=== PATIENT | female | born 1950 | race Caucasian/White ===

== ENCOUNTER → 2018-07-18 | Outpatient (CLI) | payer BC, MEDICARE ==
--- NOTE | 2018-07-19 09:04 | CT ---
EXAMINATION TYPE: CT abdomen pelvis w con DATE OF EXAM: 07/18/2018 HISTORY: LLQ pain, hernia CT DLP: 1185.5mGycm Automated Exposure Control for Dose Reduction was Utilized. CONTRAST: CT scan of the abdomen and pelvis is performed with IV Contrast, patient injected with 100 mL of Isov ue 300. COMPARISON: None. FINDINGS: LUNG BASES: No significant abnormality is appreciated. LIVER/GB: Left lobe 2.6 cm hepatic cyst is seen with 2 other smaller hypoattenuated hepatic lesions t hat are subcentimeter and too small to accurately characterize but appear very hypoattenuated and are highly favored to represent cysts. No cholelithiasis is seen. PANCREAS: No significant abnormality is seen. SPLEEN: No significant abnormality is seen. ADRENALS: No significant abnormality is seen. KIDNEYS: 4 mm nonobstructing right lower pole renal calculus is seen. Indeterminant left midpole ante rior cortical 1.0 cm lesion is present that does not fit diagnostic criteria for a simple cyst. BOWEL: There is a partial intrathoracic stomach that appears paraesophageal. There is lipomatous hype rtrophy of the ileocecal valve. There is a possibility of small bowel in the left upper quadrant with swirling of the vessels in the mid mesentery beginning on image 39 2 image 49 is series 3. This coul d relate to an internal hernia although no obstruction is seen at this time. No reversal of the super ior mesenteric vein and artery location to suggest malrotation. Left lower quadrant indirect inguinal hernia with component of small bowel extending upward along the left lower quadrant contain within t he hernia sac is seen. No dilated bowel. UTERUS/ADNEXA: There is fullness of the left adnexa on image 70 of series 3 that could be related to fibroid or left adnexal mass. Pelvic ultrasound is recommended for further evaluation. LYMPH NODES: No greater than 1cm abdominal or pelvic lymph nodes are appreciated. OSSEOUS STRUCTURES: Moderate degenerative changes of the thoracolumbar spine. OTHER: There is a very small fat filled umbilical hernia. IMPRESSION: 1. Left indirect inguinal hernia containing loops of small bowel with mesenteric fat, fascial defect, and small bowel extending superiorly along the left lower quadrant. Hernia defect measures approxima tely 4 cm. No dilated loops of bowel to suggest obstruction. 2. Paucity of small bowel in the left upper quadrant and swirling of the mesenteric vessels could rel ate to internal hernia, however no dilated bowel or evidence of obstruction is seen at this time. Cor relate for risk factors and progressive studies to evaluate for obstruction if abdominal pain persist s. This could also be secondary to impression #1. 3. Indeterminate left renal lesion. Renal ultrasound could be performed to assess for increased or tr ansmission of a hemorrhagic or proteinaceous cyst versus solid mass. No hydronephrosis of either kidn ey. 4. Soft tissue fullness of the left adnexa that could relate to a pedunculated uterine leiomyoma or l eft adnexal lesion. Pelvic ultrasound is recommended for further characterization. 5. Partial intrathoracic stomach.
== END | disposition home or self-care (01) ==
LOC: RADCTMAIN 15:44
PROVIDERS: ATTEND Surgery Plastic and Reconstructive Surgery
DX: K40.90 Unilateral inguinal hernia, without obstruction or gangrene, not specified as recurrent (principal)
CPT/HCPCS: 82565; 84520; 74177; 36415; Q9967

== ENCOUNTER 2018-08-08 10:02 | Day surgery (SDC) | payer BC, MEDICARE ==
[2018-08-07 12:53] VITALS: BMI 29.7
--- NOTE | 2018-08-08 05:48 | P.GSHP ---
History of Present Illness H&P Date: 08/08/18 CHIEF COMPLAINT: GERD and colon screen HISTORY OF PRESENT ILLNESS: The patient is a 68-year-old female who presents with gastroesophageal reflux disease and need for colon screen. Upper and lower endoscopy were offered for further evaluation and management. PAST MEDICAL HISTORY: Please see list. PAST SURGICAL HISTORY: Please see list. MEDICATIONS: Please see list. ALLERGIES: Please see list. SOCIAL HISTORY: No illicit drug use FAMILY HISTORY: No reports of Crohn disease or ulcerative colitis. REVIEW OF ORGAN SYSTEMS: CONSTITUTIONAL: No reports of fevers or chills. GI: Denies any blood in stools or constipation. PHYSICAL EXAM: VITAL SIGNS: Stable GENERAL: Well-developed pleasant in no acute distress. HEENT: No scleral icterus. Extraocular movements grossly intact. Moist buccal mucosa. NECK: Supple without lymphadenopathy. CHEST: Unlabored respirations. Equal bilateral excursions. CARDIOVASCULAR: Regular rate and rhythm. Distal 2+ pulses. ABDOMEN: Soft, nondistended. MUSCULOSKELETAL: No clubbing, cyanosis, or edema. ASSESSMENT: 1. Gastroesophageal reflux disease 2. Colon screen. PLAN: 1. Recommend proceeding with an upper and lower endoscopy Past Medical History Past Medical History: Osteoarthritis (OA), Thyroid Disorder Additional Past Medical History / Comment(s): HERNIA History of Any Multi-Drug Resistant Organisms: None Reported Past Surgical History: Tonsillectomy Additional Past Surgical History / Comment(s): ARTHROSCOPIC RIGHT KNEE Past Anesthesia/Blood Transfusion Reactions: No Reported Reaction, Family History of Problems w/ Anesthesia, Postoperative Nausea & Vomiting (PONV) Additional Past Anesthesia/Blood Transfusion Reaction / Comment(s): MOTHER PONV Smoking Status: Former smoker - Past Family History Mother Family Medical History: Cancer Medications and Allergies Home Medications Medication Instructions Recorded Confirmed Type Levothyroxine Sodium [Synthroid] 125 mcg PO DAILY 08/07/18 08/07/18 History Allergies Allergy/AdvReac Type Severity Reaction Status Date / Time No Known Allergies Allergy Verified 08/07/18 12:28
[2018-08-08 10:45] VITALS: TEMP 97.6
[2018-08-08] MEDS ORDERED: LACTATED RINGERS 1,000 ML IV ONE (10:51)
[2018-08-08] MEDS ORDERED: LIDOCAINE 1% 20 ML VIAL (10MG/ML) FOR IV START INTRADERMA ONE (10:53)
[2018-08-08] MEDS ORDERED: PROPOFOL 10 MG/ML 20 ML VIAL IV ONE (11:40)
[2018-08-08] MEDS ORDERED: LIDOCAINE 1% INJ 10MG/ML (20 ML MDV) ONE (11:40)
--- NOTE | 2018-08-08 11:54 | P.PCN ---
Date of Procedure: 08/08/18 Description of Procedure: PREOPERATIVE DIAGNOSIS: Hiatal hernia POSTOPERATIVE DIAGNOSIS: Erosive esophagitis Gastritis. Gastroesophageal reflux disease. Diaphragmatic hiatal hernia OPERATION: Esophagogastroduodenoscopy with biopsies along antrum. SURGEON: Jen Leal MD ANESTHESIA: MAC. INDICATIONS: The patient is a 68-year-old female who presents with a history of hiatal hernia. Benefits and risks of the procedure were described. Informed consent was obtained. DESCRIPTION: The patient was brought into the endoscopy suite and laid in the left lateral decubitus position. An Olympus gastroscope was passed along the posterior oropharynx down to the distal esophagus where the squamocolumnar junction was encountered at 34 cm from the incisors. The stomach was entered and no bile reflux was found. Additional findings are listed below. Biopsies with cold forceps were obtained of the antrum. The first through third portion of the duodenum was examined and unremarkable. Retroflexion of the scope confirmed Hill grade 4 lower esophageal valve. The squamocolumnar junction demonstrated LA grade C erosive esophagitis. The stomach was desufflated. The patient tolerated the procedure well. FINDINGS: Squamocolumnar junction 34 cm from the incisors. Diaphragmatic hiatus at 40 cm. Hiatal hernia, 6 cm, sliding type Hill grade 4 lower esophageal valve. LA grade C erosive esophagitis, acute No active duodenitis. Chronic gastritis RECOMMENDATIONS: Upper endoscopy as needed.
--- NOTE | 2018-08-08 12:09 | P.PCN ---
Date of Procedure: 08/08/18 Description of Procedure: PREOPERATIVE DIAGNOSIS: Colonoscopy screening. POSTOPERATIVE DIAGNOSIS: Colonoscopy screening. Diverticulosis, scattered. OPERATION: Colonoscopy to the ileocecal valve and appendiceal orifice. SURGEON: Jen Leal MD. ANESTHESIA: MAC. INDICATIONS: The patient is a 68-year-old female who presents for her first colonoscopy screening. Benefits and risks were described and informed consent was obtained. DESCRIPTION OF PROCEDURE: The patient had undergone Gatorade, MiraLAX and Dulcolax prep. She had been brought into the operating room and laid in the left lateral decubitus position. After adequate intravenous sedation, the rectum was examined with 2% lidocaine jelly. No external hemorrhoids were encountered. The rectal tone was within normal limits. No lesions were palpated in the rectal vault. An Olympus colonoscope was advanced until the ileocecal valve and appendiceal orifice were clearly viewed. The prep was excellent with clear visualization of the mucosal folds. The scope was removed with visualization of each mucosal fold. Scattered diverticulosis was encountered. No colonic polyps were found. No evidence of focal colitis was found. Retroflexion of the scope demonstrated no internal hemorrhoids. The colon was desufflated. The patient had tolerated the procedure well. Withdrawal time was over 6 minutes. FINDINGS: No internal hemorrhoids No external prolapsed hemorrhoids. No arteriovenous malformations. No adenomatous polyps. No focal colitis. Scattered pandiverticulosis RECOMMENDATIONS: Lower in 10 years per screening guidelines, 2027 Plan - Discharge Summary New Discharge Prescriptions: No Action Levothyroxine Sodium [Synthroid] 125 mcg PO DAILY Discharge Medication List Levothyroxine Sodium [Synthroid] 125 mcg PO DAILY 08/07/18 [History]
[2018-08-08 12:21] VITALS: BP 113/66; PULSE 69; RESP 18
== END 2018-08-08 12:44 | disposition home or self-care (01) ==
LOC: ORWHC2ENDO 10:02
PROVIDERS: ATTEND Surgery Plastic and Reconstructive Surgery
DX: Z12.11 Encounter for screening for malignant neoplasm of colon (principal); K57.30 Diverticulosis of large intestine without perforation or abscess without bleeding; K29.50 Unspecified chronic gastritis without bleeding; K44.9 Diaphragmatic hernia without obstruction or gangrene; K21.0 Gastro-esophageal reflux disease with esophagitis; K22.10 Ulcer of esophagus without bleeding; M19.90 Unspecified osteoarthritis, unspecified site; E07.9 Disorder of thyroid, unspecified; Z79.890 Hormone replacement therapy; Z87.891 Personal history of nicotine dependence
CPT/HCPCS: 88305; 43239; J2001; J2704; G0121

== ENCOUNTER → 2018-11-19 | Outpatient (CLI) | payer BC ==
[2018-11-19 16:05] LABS: Anisocytosis Marked; HCT 40.7 % (34.0-46.0); HGB 12.7 gm/dL (11.4-16.0); Hypochromasia Moderate; MCH 24.5 pg (25.0-35.0); MCHC 31.2 g/dL (31.0-37.0); MCV 78.6 fL (80.0-100.0); Mean Platelet Volume 8.3; Microcytosis Marked; Platelet Count 232 k/uL (150-450); RBC 5.18 m/uL (3.80-5.40)
== END | disposition home or self-care (01) ==
LOC: LABPAT 15:04
PROVIDERS: ATTEND Surgery Plastic and Reconstructive Surgery
DX: Z01.812 Encounter for preprocedural laboratory examination (principal)
CPT/HCPCS: 36415; 85027

== ENCOUNTER → 2018-11-23 | Day surgery (SDC) | payer BC, MEDICARE ==
[2018-11-16 16:35] VITALS: BMI 29.7
[~2018-11-23] MED LIST: BUPIVACAIN-EPI 0.5%-1:200,000 30 ML VIAL SQ ONE; DEXAMETHASONE SOD PHOSPHATE 10 MG/ML 1 ML VIAL IV ONE; GLYCOPYRROLATE 0.2 MG/ML 2 ML VIAL ONE; HEPARIN SODIUM,PORCINE 5,000 UNIT/ML 1 ML VIAL SQ ONE; HYDROmorphone 0.5 MG/0.5 ML SYRINGE IVP PRN; LACTATED RINGERS 1,000 ML IV ONE; LIDOCAINE 1% 20 ML VIAL (10MG/ML) FOR IV START INTRADERMA ONE; LIDOCAINE 1% INJ 10MG/ML (20 ML MDV) ONE; MIDAZOLAM (PF) 2 MG/2 ML VIAL IV PRN; MIDAZOLAM 2 MG/2 ML VIAL IV ONE; NEOSTIGMINE 1 MG/ML 10 ML VIAL ONE; ONDANSETRON 4 MG/2 ML VIAL IVP ONE; PROPOFOL 10 MG/ML 20 ML VIAL IV ONE; ROCURONIUM BROMIDE 10 MG/ML 10 ML VIAL IV ONE; ROPIVACAINE 5 MG/ML 30 ML VIAL ONE; SUCCINYLCHOLINE CHLORIDE 100 MG/5 ML SYR IV ONE; ceFAZolin IN SWFI 2 GM/20 ML SYRINGE IVP ONE; fentaNYL (PF) 50 MCG/ML 2 ML AMP IV ONE; fentaNYL (PF) 50 MCG/ML 2 ML AMP ONE
--- NOTE | 2018-11-23 11:44 | P.GSHP ---
History of Present Illness H&P Date: 11/23/18 CHIEF COMPLAINT: Ventral hernia. HISTORY OF PRESENT ILLNESS: The patient is a 68-year-old female who presents with a history of swelling along the lower left abdomen. Findings were consistent with large ventral hernia. Now she presents for further evaluation and management. PAST MEDICAL HISTORY: Please see list. PAST SURGICAL HISTORY: Please see list. MEDICATIONS: Please see list. ALLERGIES: Please see list. SOCIAL HISTORY: No illicit drug use FAMILY HISTORY: No reports of Crohn disease or ulcerative colitis. REVIEW OF ORGAN SYSTEMS: CONSTITUTIONAL: No reports of fevers or chills. GI: Denies any blood in stools or constipation. PHYSICAL EXAM: VITAL SIGNS: Stable GENERAL: Well-developed pleasant female in no acute distress. HEENT: No scleral icterus. Extraocular movements grossly intact. Moist buccal mucosa. NECK: Supple without lymphadenopathy. CHEST: Unlabored respirations. Equal bilateral excursions. CARDIOVASCULAR: Regular rate and rhythm. Distal 2+ pulses. ABDOMEN: Soft, nondistended. Tender along the left lower abdomen. MUSCULOSKELETAL: No clubbing, cyanosis, or edema. ASSESSMENT: 1. Ventral hernia. 2. Morbid obesity, BMI 45.2 PLAN: 1. Recommend proceeding with robotic ventral hernia repair with mesh. 2. Benefits and risks of surgical intervention was discussed including possibility of open technique. 3. DVT prophylaxis. 4. Antibiotic prophylaxis. 5. Cardiac clearance obtained Past Medical History Past Medical History: Blood Disorder, Osteoarthritis (OA), Thyroid Disorder Additional Past Medical History / Comment(s): Recent anemia, SURGERY POSTPONED LAST MONTH, HAD 2 IRON INFUSIONS. "Multiple" Hernias per pt. HEART MURMUR; HAD CARDIAC W/U LAST MONTH. History of Any Multi-Drug Resistant Organisms: None Reported Past Surgical History: Orthopedic Surgery, Tonsillectomy Additional Past Surgical History / Comment(s): Arthroscopic RT knee, EGD, Colonoscopy Past Anesthesia/Blood Transfusion Reactions: Family History of Problems w/ Anesthesia, Postoperative Nausea & Vomiting (PONV) Additional Past Anesthesia/Blood Transfusion Reaction / Comment(s): Mother - PONV Smoking Status: Former smoker - Past Family History Mother Family Medical History: Cancer Medications and Allergies Home Medications Medication Instructions Recorded Confirmed Type Levothyroxine Sodium [Synthroid] 125 mcg PO DAILY 08/07/18 11/16/18 History Omeprazole 40 mg PO DAILY #14 capsule. 08/08/18 11/16/18 Rx Ibuprofen [Motrin Ib] 200 - 400 mg PO Q6H PRN 11/16/18 11/16/18 History Allergies Allergy/AdvReac Type Severity Reaction Status Date / Time ferrous sulfate AdvReac Diarrhea Verified 11/16/18 16:05
[2018-11-23] MEDS: LACTATED RINGERS 1,000 ML IV SCH ×2 (14:06→18:35)
--- NOTE | 2018-11-23 17:09 | P.OP ---
Date of Procedure: 11/23/18 Description of Procedure: SURGEON: JEN LEAL MD PREOPERATIVE DIAGNOSES: 1. Initial incarcerated left lower quadrant ventral hernia 2. Left lower quadrant abdominal pain with swelling 3. Hypothyroidism 4. Gastroesophageal reflux disease 5. Moderate to severe chronic iron deficiency anemia 6. Anemia POSTOPERATIVE DIAGNOSES: 1. Initial incarcerated left lower quadrant ventral hernia, 5-cm, with small bowel obstruction without gangrene 2. Left lower quadrant abdominal pain with swelling 3. Hypothyroidism 4. Gastroesophageal reflux disease 5. Moderate to severe chronic iron deficiency anemia 6. Anemia OPERATION: 1. Robotic-assisted da Cecilia Xi laparoscopic reduction and repair of initial incarcerated ventral hernia 5-cm with mesh, ventralight ST mesh 11.4 cm 2. Excision of left lower abdominal subfascial lipoma, 4 x 4 centimeters ANESTHESIA: General with local ESTIMATED BLOOD LOSS: 5 mL. SPECIMENS: Ventral hernia sac with abdominal wall subfascial lipoma COMPLICATIONS: None. INDICATIONS: The patient is a 68-year-old female who presents with history of change in bowel habits including left lower abdominal wall swelling consistent with abdominal wall hernia. Surgical intervention with laparoscopic versus robotic and open techniques were reviewed. Placement of mesh was also reviewed. Benefits and risks were thoroughly described. Informed consent was obtained. DESCRIPTION OF PROCEDURE: The patient was brought into the operating room and laid in supine position. After general induction, the abdomen had been prepped and draped in standard sterile fashion. Ioban draping was also placed. Prior to incision, a timeout protocol was confirmed with surgical team regarding the patient's name including procedures to be performed. The robot was primed prior to the procedure. A field block using local anesthetic was placed along hernia site including the proposed port sites. Initial incision was made with an #11 blade along the left upper quadrant. A 0 degree 5 mm laparoscopic trocar entry was performed and insufflated. An 8 mm port was placed along the right upper quadrant and another at the epigastrium under direct localization. The 5- mm port was exchanged for an 8 mm robotic port. Placements of the ports were 15 cm from the target anatomy and 10 cm apart. The [employer] robot was previously primed, prepped and draped then docked along the right side of the patient. I then sat at the robot [employer] console where working arms of the robot including Bovie cautery connected to robotic scissors, vessel sealer, needle national van truck driver, and graspers placed by the computer assistant. Small bowel was found incarcerated in the left lower abdominal wall hernia. The patient was repositioned in steep Trendelenburg position 16. Persistent pressure along the left lower abdominal wall allowed reduction of the incarcerated contents. Fascial defect of 5 cm was confirmed of the left lower abdominal wall. The incarcerated contents was reduced as the peritoneal fat was cleaned from the abdominal wall. The hernia sac was excised at its root. Abdominal wall lipoma subfascial 4 x 4 centimeters was also excised along side the hernia sac. Next, hemostasis was checked with cautery. The hernia defect was oversewn using #1 Stratafix with fascial imbrication. Next, ventralight ST mesh 11.4 cm was placed with the rough side towards the abdominal wall. 2-0 VLOC 9 inch sutures were used to fixate the mesh. A final endoscopic imaging was obtained. All instruments and pneumoperitoneum were evacuated from the abdominal cavity. The da Cecilia Xi robot was undocked from the patient. I re-scrubbed into the case for closure of incisions. The specimen was removed from the abdomen using Endo Catch bag. The incisions were reapproximated using 4-0 Monocryl in an interrupted subcuticular fashion. Liquid glue was applied to the skin after cleansing the skin with normal saline and dilute hydrogen peroxide. An abdominal binder was placed. At the end of the procedure, needle, sponge, and instrument count had been verified correct by quality assurance qa lab technician. The patient was taken to the postanesthesia care unit in stable condition. FINDINGS: 1. Large incarcerated left lower abdominal wall hernia 5 cm involving small bowel contents Plan - Discharge Summary Discharge Rx Participant: No New Discharge Prescriptions: New HYDROcodone/APAP 5-325MG [[place] 5-325] 1 tab PO Q4HR PRN 3 Days #10 tab PRN Reason: Pain Ibuprofen [Motrin] 600 mg PO Q8HR PRN #20 tab PRN Reason: Pain No Action Levothyroxine Sodium [Synthroid] 125 mcg PO DAILY Omeprazole 40 mg PO DAILY #14 capsule. Ibuprofen [Motrin Ib] 200 - 400 mg PO Q6H PRN PRN Reason: Pain Discharge Medication List Levothyroxine Sodium [Synthroid] 125 mcg PO DAILY 08/07/18 [History] Omeprazole 40 mg PO DAILY #14 capsule.dr 08/08/18 [Rx] Ibuprofen [Motrin Ib] 200 - 400 mg PO Q6H PRN 11/16/18 [History] HYDROcodone/APAP 5-325MG [[place] 5-325] 1 tab PO Q4HR PRN 3 Days #10 tab [Rx] Ibuprofen [Motrin] 600 mg PO Q8HR PRN #20 tab 11/23/18 [Rx] Follow up Appointment(s)/Referral(s): Jen Leal MD [STAFF PHYSICIAN] - 11/27/18 Patient Instructions/Handouts: Abdominal Binder (DC), Ventral Hernia Repair (DC ) Activity/Diet/Wound Care/Special Instructions: No lifting over 4 pounds in 4 weeks. No bathtub soaks. May shower. Wear abdominal binder for comfort Discharge Disposition: HOME SELF-CARE
[2018-11-23 17:13] VITALS: TEMP 97.2
[2018-11-23 19:40] VITALS: BP 147/82; PULSE 89; RESP 17
--- NOTE | 2018-11-23 19:44 | P.ONQ ---
Anesthesiology Proc Note - PNB - Peripheral Nerve Block Performed Left Transversus Abdominis Single Time Out Performed: Yes Indication: Acute Post-Operative Pain, Dx/Pain Location (abdominal pain), Requested by physician Sedation Type: Sedate with meaningful contact maintained Preparation: Sterile Prep Position: Supine Catheter: None Needle Types: On-Q Needle Size: 100mm (4") Needle Gauge: 21 Technique: Ultrasound Injectate: Other (see comment) (30ml 0.25% Ropivacaine) Blood Aspirated: No Pain Paresthesia on Injection Noted: No Resistance on Injection: Normal Events: Uneventful and Well Tolerated
== END | disposition home or self-care (01) ==
LOC: OR 13:01
PROVIDERS: ATTEND Surgery Plastic and Reconstructive Surgery
DX: K43.6 Other and unspecified ventral hernia with obstruction, without gangrene (principal); K21.9 Gastro-esophageal reflux disease without esophagitis; E03.9 Hypothyroidism, unspecified; M19.90 Unspecified osteoarthritis, unspecified site; Z87.891 Personal history of nicotine dependence; D50.9 Iron deficiency anemia, unspecified; E66.01 Morbid (severe) obesity due to excess calories; Z68.42 Body mass index [BMI] 45.0-49.9, adult; Z79.890 Hormone replacement therapy; Z79.899 Other long term (current) drug therapy; Z88.8 Allergy status to other drugs, medicaments and biological substances
CPT/HCPCS: 49653; S2900; 64486; 64488; 88302

== ENCOUNTER 2021-01-17 13:53 | Observation (INO) | payer BC, MEDICARE ==
[2021-01-17] MEDS ORDERED: ONDANSETRON 4 MG/2 ML VIAL IVP STA (14:56)
[2021-01-17] MEDS ORDERED: SODIUM CHLORIDE 0.9% 1,000 ML IV STA (14:56)
[2021-01-17] MEDS ORDERED: MORPHINE SULFATE 4 MG/ML SYRINGE IV STA (14:56)
--- NOTE | 2021-01-17 15:10 | ED ---
Abdominal Pain HPI - General Chief Complaint: Abdominal Pain Stated Complaint: Pain in R side Time Seen by Provider: 01/17/21 14:45 Source: patient, RN notes reviewed Mode of arrival: ambulatory Limitations: no limitations - History of Present Illness Initial Comments: Patient is a 70-year-old female that presents to the emergency department complaining of right side pain. She notes that she ate popcorn and peanuts [employer] for dinner last night. She woke up at 3:30 this morning with a sharp right flank upper quadrant pain. She noted that the pain in her upper quadrant radiated to her back. She did deny any history of gallbladder issues, kidney s tones, kidney infections, UTIs. She was in mild to moderate distress while sitting up in bed during the exam interview secondary to pain. She did note that she got nauseous at one point last night but did not vomit. Patient did report point tenderness over the right upper quadrant but also noted that she was having pain in the right lower quadrant. She denied any vomiting diarrhea constipation fever fatigue chills chest pain shortness of breath. - Related Data Home Medications Medication Instructions Recorded Confirmed Levothyroxine Sodium [Synthroid] 125 mcg PO DAILY 08/07/18 11/16/18 Ibuprofen [Motrin Ib] 200 - 400 mg PO Q6H PRN 11/16/18 11/16/18 Previous Rx's Medication Instructions Recorded Omeprazole 40 mg PO DAILY #14 capsule.dr 08/08/18 HYDROcodone/APAP 5-325MG [Fenton 1 tab PO Q4HR PRN 3 Days #10 tab 11/23/18 5-325] Ibuprofen [Motrin] 600 mg PO Q8HR PRN #20 tab 11/23/18 Allergies Allergy/AdvReac Type Severity Reaction Status Date / Time ferrous sulfate AdvReac Diarrhea Verified 01/17/21 14:44 Review of Systems ROS Statement: Those systems with pertinent positive or pertinent negative responses have been documented in the HPI. ROS Other: All systems not noted in ROS Statement are negative. Past Medical History Past Medical History: Blood Disorder, Osteoarthritis (OA), Thyroid Disorder Additional Past Medical History / Comment(s): Recent anemia, SURGERY POSTPONED LAST MONTH, HAD 2 IRON INFUSIONS. "Multiple" Hernias per pt. HEART MURMUR; HAD CARDIAC W/U LAST MONTH. History of Any Multi-Drug Resistant Organisms: None Reported Past Surgical History: Orthopedic Surgery, Tonsillectomy Additional Past Surgical History / Comment(s): Arthroscopic RT knee, EGD, Colonoscopy Past Anesthesia/Blood Transfusion Reactions: Family History of Problems w/ Anesthesia, Postoperative Nausea & Vomiting (PONV) Additional Past Anesthesia/Blood Transfusion Reaction / Comment(s): Mother - PONV Past Psychological History: No Psychological Hx Reported Smoking Status: Never smoker Past Alcohol Use History: Rare Past Drug Use History: None Reported - Past Family History Mother Family Medical History: Cancer General Exam Limitations: no limitations General appearance: alert, in no apparent distress Head exam: Present: atraumatic, normocephalic, normal inspection Eye exam: Present: normal appearance, PERRL, EOMI. Absent: scleral icterus, conjunctival injection, periorbital swelling ENT exam: Present: normal exam, mucous membranes moist Neck exam: Present: normal inspection. Absent: tenderness, meningismus, lymphadenopathy Respiratory exam: Present: normal lung sounds bilaterally. Absent: respiratory distress, wheezes, rales, rhonchi, stridor Cardiovascular Exam: Present: regular rate, normal rhythm, normal heart sounds. Absent: systolic murmur, diastolic murmur, rubs, gallop, clicks GI/Abdominal exam: Present: soft, tenderness (Right upper quadrant with radiation to the back), normal bowel sounds. Absent: distended, guarding, rebound, rigid Extremities exam: Present: normal inspection, full ROM, normal capillary refill. Absent: tenderness, pedal edema, joint swelling, calf tenderness Neurological exam: Present: alert, oriented X3, CN II-XII intact Psychiatric exam: Present: normal affect, normal mood Skin exam: Present: warm, dry, intact, normal color. Absent: rash Course Vital Signs 01/17/21 14:41 Temperature 98.0 F Pulse Rate 84 Respiratory 20 Rate Blood Pressure 148/69 Medical Decision Making - Medical Decision Making 70-year-old female complaining of right side pain with point tenderness in the right upper quadrant with radiation of the back. Labs, ultrasound of the abdomen, KUB, 1 L normal saline, 4 mm morphine, 4 mg Zofran ordered. Abdominal ultrasound shows a 0.8 cm stone concerning for obstruction. Hemoglobin 6.8. Case discussed with Dr. Sheehan, reordered CBC, got a occult blood test. 2 units of red blood cells ordered. Patient will be admitted to medicine with a urology consult. Dr. Montiel will accept the admit, and urology will be consulted. - Lab Data Result diagrams: 01/17/21 17:46 01/17/21 15:52 Lab Results 01/17/21 01/17/21 01/17/21 Range/Units 15:52 15:52 15:52 WBC 10.4 (3.8-10.6) k/uL RBC 4.04 (3.80-5.40) m/uL Hgb 6.8 L* (11.4-16.0) gm/dL Hct 26.2 L (34.0-46.0) % MCV 65.0 L (80.0-100.0) fL MCH 16.8 L (25.0-35.0) pg MCHC 25.9 L (31.0-37.0) g/dL RDW 17.7 H (11.5-15.5) % Plt Count 249 (150-450) k/uL MPV 8.5 Neutrophils % 84 % Lymphocytes % 10 % Monocytes % 4 % Eosinophils % 0 % Basophils % 0 % Neutrophils # 8.8 H (1.3-7.7) k/uL Lymphocytes # 1.1 (1.0-4.8) k/uL Monocytes # 0.4 (0-1.0) k/uL Eosinophils # 0.0 (0-0.7) k/uL Basophils # 0.1 (0-0.2) k/uL Hypochromasia Marked Poikilocytosis Slight Anisocytosis Slight Microcytosis Marked Sodium 136 L (137-145) mmol/L Potassium 4.6 (3.5-5.1) mmol/L Chloride 106 (98-107) mmol/L Carbon Dioxide 21 L (22-30) mmol/L Anion Gap 9 mmol/L BUN 14 (7-17) mg/dL Creatinine 0.89 (0.52-1.04) mg/dL Est GFR (CKD-EPI)AfAm 77 (>60 ml/min/1.73 sqM) Est GFR (CKD-EPI)NonAf 66 (>60 ml/min/1.73 sqM) Glucose 111 H (74-99) mg/dL Calcium 9.5 (8.4-10.2) mg/dL Total Bilirubin 0.6 (0.2-1.3) mg/dL AST 25 (14-36) U/L ALT 11 (4-34) U/L Alkaline Phosphatase 60 (38-126) U/L Total Protein 6.5 (6.3-8.2) g/dL Albumin 4.2 (3.5-5.0) g/dL Amylase 47 (30-110) U/L Lipase 84 (23-300) U/L Urine Color Yellow Urine Appearance Clear (Clear) Urine pH 5.5 (5.0-8.0) Ur Specific Bowie 1.018 (1.001-1.035) Urine Protein Trace H (Negative) Urine Glucose (UA) Negative (Negative) Urine Ketones 2+ H (Negative) Urine Blood Trace H (Negative) Urine Nitrite Negative (Negative) Urine Bilirubin Negative (Negative) Urine Urobilinogen <2.0 (<2.0) mg/dL Ur Leukocyte Esterase Small H (Negative) Urine RBC 6 H (0-5) /hpf Urine WBC 7 H (0-5) /hpf Ur Squamous Epith Cells 6 H (0-4) /hpf Urine Mucus Few H (None) /hpf Stool Occult Blood (Negative) Blood Type Blood Type Confirm Blood Type Recheck Bld Type Recheck Status Antibody Screen Crossmatch Spec Expiration Date 01/17/21 01/17/21 01/17/21 Range/Units 17:32 17:46 17:46 WBC 10.3 (3.8-10.6) k/uL RBC 4.00 (3.80-5.40) m/uL Hgb 6.6 L* (11.4-16.0) gm/dL Hct 26.0 L (34.0-46.0) % MCV 65.1 L (80.0-100.0) fL MCH 16.4 L (25.0-35.0) pg MCHC 25.2 L (31.0-37.0) g/dL RDW 17.7 H (11.5-15.5) % Plt Count 270 (150-450) k/uL MPV 10.5 Neutrophils % 83 % Lymphocytes % 12 % Monocytes % 4 % Eosinophils % 0 % Basophils % 1 % Neutrophils # 8.5 H (1.3-7.7) k/uL Lymphocytes # 1.2 (1.0-4.8) k/uL Monocytes # 0.4 (0-1.0) k/uL Eosinophils # 0.0 (0-0.7) k/uL Basophils # 0.1 (0-0.2) k/uL Hypochromasia Marked Poikilocytosis Anisocytosis Slight Microcytosis Marked Sodium (137-145) mmol/L Potassium (3.5-5.1) mmol/L Chloride (98-107) mmol/L Carbon Dioxide (22-30) mmol/L Anion Gap mmol/L BUN (7-17) mg/dL Creatinine (0.52-1.04) mg/dL Est GFR (CKD-EPI)AfAm (>60 ml/min/1.73 sqM) Est GFR (CKD-EPI)NonAf (>60 ml/min/1.73 sqM) Glucose (74-99) mg/dL Calcium (8.4-10.2) mg/dL Total Bilirubin (0.2-1.3) mg/dL AST (14-36) U/L ALT (4-34) U/L Alkaline Phosphatase (38-126) U/L Total Protein (6.3-8.2) g/dL Albumin (3.5-5.0) g/dL Amylase (30-110) U/L Lipase (23-300) U/L Urine Color Urine Appearance (Clear) Urine pH (5.0-8.0) Ur Specific Bowie (1.001-1.035) Urine Protein (Negative) Urine Glucose (UA) (Negative) Urine Ketones (Negative) Urine Blood (Negative) Urine Nitrite (Negative) Urine Bilirubin (Negative) Urine Urobilinogen (<2.0) mg/dL Ur Leukocyte Esterase (Negative) Urine RBC (0-5) /hpf Urine WBC (0-5) /hpf Ur Squamous Epith Cells (0-4) /hpf Urine Mucus (None) /hpf Stool Occult Blood (Negative) Blood Type A Negative Blood Type Confirm A Negative Blood Type Recheck No Previous Record Bld Type Recheck Status CABO Indicated Antibody Screen NEGATIVE Crossmatch See Detail Spec Expiration Date 01/20/2021 - 233101/17/21 Range/Units 18:37 WBC (3.8-10.6) k/uL RBC (3.80-5.40) m/uL Hgb (11.4-16.0) gm/dL Hct (34.0-46.0) % MCV (80.0-100.0) fL MCH (25.0-35.0) pg MCHC (31.0-37.0) g/dL RDW (11.5-15.5) % Plt Count (150-450) k/uL MPV Neutrophils % % Lymphocytes % % Monocytes % % Eosinophils % % Basophils % % Neutrophils # (1.3-7.7) k/uL Lymphocytes # (1.0-4.8) k/uL Monocytes # (0-1.0) k/uL Eosinophils # (0-0.7) k/uL Basophils # (0-0.2) k/uL Hypochromasia Poikilocytosis Anisocytosis Microcytosis Sodium (137-145) mmol/L Potassium (3.5-5.1) mmol/L Chloride (98-107) mmol/L Carbon Dioxide (22-30) mmol/L Anion Gap mmol/L BUN (7-17) mg/dL Creatinine (0.52-1.04) mg/dL Est GFR (CKD-EPI)AfAm (>60 ml/min/1.73 sqM) Est GFR (CKD-EPI)NonAf (>60 ml/min/1.73 sqM) Glucose (74-99) mg/dL Calcium (8.4-10.2) mg/dL Total Bilirubin (0.2-1.3) mg/dL AST (14-36) U/L ALT (4-34) U/L Alkaline Phosphatase (38-126) U/L Total Protein (6.3-8.2) g/dL Albumin (3.5-5.0) g/dL Amylase (30-110) U/L Lipase (23-300) U/L Urine Color Urine Appearance (Clear) Urine pH (5.0-8.0) Ur Specific Bowie (1.001-1.035) Urine Protein (Negative) Urine Glucose (UA) (Negative) Urine Ketones (Negative) Urine Blood (Negative) Urine Nitrite (Negative) Urine Bilirubin (Negative) Urine Urobilinogen (<2.0) mg/dL Ur Leukocyte Esterase (Negative) Urine RBC (0-5) /hpf Urine WBC (0-5) /hpf Ur Squamous Epith Cells (0-4) /hpf Urine Mucus (None) /hpf Stool Occult Blood Negative (Negative) Blood Type Blood Type Confirm Blood Type Recheck Bld Type Recheck Status Antibody Screen Crossmatch Spec Expiration Date - Radiology Data Radiology results: report reviewed, image reviewed Abdominal ultrasound: Mild right hydronephrosis with 0.8 cm renal calculus seen findings are concerning for obstruction. No additional acute abnormality of the abdominal ultrasound. KUB: There are nondilated bowel loops with a nonobstructive pattern. No free air. There is moderate amount of colonic stool. There are no pathologic calcifications. No acute osseous emboli seen. Moderate lumbar spondylolysis with levoconvex curvature. Disposition Clinical Impression: Nephrolithiasis, Blood hemoglobin level less than 10 grams/deciliter Disposition: ADMITTED IP TO THIS [facility] Condition: Stable Is patient prescribed a controlled substance at d/c from ED?: No Referrals: Nonstaff,Physician [Primary Care Provider] - 1-2 days Time of Disposition: 20:22
--- NOTE | 2021-01-17 16:03 | XR ---
EXAM: Abdomen radiograph. HISTORY: Pain. TECHNIQUE: Upright AP view. COMPARISON: Same-day ultrasound. FINDINGS: There are nondilated bowel loops with a nonobstructive pattern. No free air. There is moderate amount of colonic stool. There are no pathologic calcifications. No acute osseous abnormality seen. Moderat e lumbar spondylosis with levoconvex curvature. IMPRESSION: Nonobstructive bowel gas pattern. Moderate stool burden.
--- NOTE | 2021-01-17 16:07 | US ---
EXAMINATION TYPE: US abdomen complete DATE OF EXAM: 01/17/2021 COMPARISON: CT 2018 CLINICAL HISTORY: Right upper and lower quadrant pain. EXAM MEASUREMENTS: Liver Length: 11.9 cm Gallbladder Wall: 0.2 cm CBD: 0.6 cm Spleen: 9.9 cm Right Kidney: 12.1 x 5.1 x 6.3 cm Left Kidney: 11.9 x 4.3 x 5.9 cm Pancreas: wnl Liver: wnl Gallbladder: No stones seen Evidence for sonographic Chin's sign: No CBD: wnl Spleen: wnl Right Kidney: mild hydronephrosis with shadowing stone seen lower pole measures 0.6 x 0.6 x 0.8 cm. Left Kidney: No hydronephrosis or masses seen Upper IVC: wnl Abd Aorta: wnl IMPRESSION: Mild right hydronephrosis with 0.8 cm renal calculus seen. Findings are concerning for obstruction. No additional acute abnormality of the abdominal ultrasound.
[2021-01-17 16:28] LABS: Appearance,Urine Clear (Clear); Bilirubin,Urine Negative (Negative); Blood,Urine Trace (Negative); Color,Urine Yellow; Glucose,Urine (UA) Negative (Negative); Ketones,Urine 2+ (Negative); Leukocyte Esterase,Urine Small (Negative); Mucus,Urine Few /hpf; Nitrite,Urine Negative (Negative); PH, Urine 5.5 (5.0-8.0); Protein,Urine Trace (Negative); RBC,Urine 6 /hpf (0-5); Specific Gravity,Urine 1.018 (1.001-1.035); Squamous Epithelial Cell,Urine 6 /hpf (0-4); Urobilinogen,Urine <2.0 mg/dL (<2.0); WBC,Urine 7 /hpf (0-5)
[2021-01-17 16:34] LABS: Albumin 4.2 g/dL (3.5-5.0); Calcium 9.5 mg/dL (8.4-10.2); Potassium 4.6 mmol/L (3.5-5.1); Total Bilirubin 0.6 mg/dL (0.2-1.3); Total Protein 6.5 g/dL (6.3-8.2)
[2021-01-17 16:35] LABS: Anisocytosis Slight; Basophils # (A) 0.1 k/uL (0-0.2); Basophils % (A) 0 %; Eosinophils % (A) 0 %; HCT 26.2 % (34.0-46.0); Hypochromasia Marked; Lymphocytes # (A) 1.1 k/uL (1.0-4.8); Lymphocytes % (A) 10 %; MCH 16.8 pg (25.0-35.0); MCHC 25.9 g/dL (31.0-37.0); Mean Platelet Volume 8.5; Microcytosis Marked; Monocytes # (A) 0.4 k/uL (0-1.0); Monocytes % (A) 4 %; Neutrophils # (A) 8.8 k/uL (1.3-7.7); Neutrophils % (A) 84 %; Platelet Count 249 k/uL (150-450); Poikilocytosis Slight; RBC 4.04 m/uL (3.80-5.40); RDW 17.7 % (11.5-15.5); WBC 10.4 k/uL (3.8-10.6)
[2021-01-17 16:46] LABS: HGB 6.8 gm/dL (11.4-16.0)
[2021-01-17 18:19] LABS: Anisocytosis Slight; Basophils # (A) 0.1 k/uL (0-0.2); Basophils % (A) 1 %; Eosinophils % (A) 0 %; Hypochromasia Marked; Lymphocytes # (A) 1.2 k/uL (1.0-4.8); Lymphocytes % (A) 12 %; MCH 16.4 pg (25.0-35.0); MCHC 25.2 g/dL (31.0-37.0); MCV 65.1 fL (80.0-100.0); Mean Platelet Volume 10.5; Microcytosis Marked; Monocytes # (A) 0.4 k/uL (0-1.0); Monocytes % (A) 4 %; Neutrophils # (A) 8.5 k/uL (1.3-7.7); Neutrophils % (A) 83 %; Platelet Count 270 k/uL (150-450); RDW 17.7 % (11.5-15.5); WBC 10.3 k/uL (3.8-10.6)
[2021-01-17 18:30] LABS: HGB 6.6 gm/dL (11.4-16.0)
[2021-01-17] MEDS ORDERED: NALOXONE 0.4 MG/ML 1 ML VIAL IV PRN (20:19)
[2021-01-17] MEDS ORDERED: MORPHINE SULFATE 4 MG/ML SYRINGE IV PRN (20:19)
[2021-01-17] MEDS ORDERED: SODIUM CHLORIDE 0.9% 1,000 ML IV SCH (20:30)
--- NOTE | 2021-01-17 21:34 | P.HPIM ---
History of Present Illness H&P Date: 01/17/21 Chief Complaint: right flank pain 70 year old female with no significant past medical history patient comes in with sudden onset right flank pain , 8/10 in severity radia ting to right groin , associated with nausea no vomiting , no diarrhea no urinary symptoms. pain started suddenly at 330 am , she claims that certain positions helps with the pain , she was having chills, taking hot showers was helping with the pain , however she did not try any pain pills. but then pain persisted so she decided to come to the hospital she was worried about appendicitis in the ED, she was diagnosed with obstructing right renal stone with mild hydro. she denies any history of kidney stones in the past. she was also found to have severe anemia , however, she is asymptomatic , and denies any bleeding or taking any blood thinners . she was told back in 2019 when she had hernia surgery that she had anemia in the 12 range, Cscope at that time was normal she denies any symptoms suggestive of anemia Review of Systems Pertinent positives as noted in HPI. All other systems were reviewed and are negative Past Medical History Past Medical History: Blood Disorder, Osteoarthritis (OA), Thyroid Disorder Additional Past Medical History / Comment(s): Recent anemia, SURGERY POSTPONED LAST MONTH, HAD 2 IRON INFUSIONS. "Multiple" Hernias per pt. HEART MURMUR; HAD CARDIAC W/U LAST MONTH. History of Any Multi-Drug Resistant Organisms: None Reported Past Surgical History: Orthopedic Surgery, Tonsillectomy Additional Past Surgical History / Comment(s): Arthroscopic RT knee, EGD, Colonoscopy Past Anesthesia/Blood Transfusion Reactions: Family History of Problems w/ Ane sthesia, Postoperative Nausea & Vomiting (PONV) Additional Past Anesthesia/Blood Transfusion Reaction / Comment(s): Mother - PONV Past Psychological History: No Psychological Hx Reported Smoking Status: Never smoker Past Alcohol Use History: Rare Past Drug Use History: None Reported - Past Family History Mother Family Medical History: Cancer Medications and Allergies Home Medications Medication Instructions Recorded Confirmed Type Levothyroxine Sodium [Synthroid] 125 mcg PO DAILY 08/07/18 01/17/21 History Allergies Allergy/AdvReac Type Severity Reaction Status Date / Time ferrous sulfate AdvReac Diarrhea Verified 01/17/21 20:26 Physical Exam Vitals: Vital Signs Temp Pulse Resp BP Pulse Ox 01/17/21 21:05 98.3 F 66 16 126/66 96 01/17/21 20:35 99.4 F 68 18 134/87 01/17/21 20:25 97.6 F 77 16 147/72 01/17/21 14:41 98.0 F 84 20 148/69 Intake and Output 01/17/21 01/17/21 01/17/21 06:59 14:59 22:59 Intake Total 0 Balance 0 Intake: Blood Product 0 Rc As-1 Unit 0 [id number] Other: Weight 81.647 kg Constitutional: No acute distress, conversant, pleasant Eyes: Anicteric sclerae, moist conjunctiva, Pupils equal round reactive to light ENMT: NC/AT Oropharynx clear, no erythema, or exudates Neck: Supple, FROM, no masses, or JVD No carotid bruits No thyromegaly Lungs: Clear to auscultation Clear to percussion Normal respiratory effort, no accessory muscle use Cardiovascular: Heart regular in rate and rhythm, No murmurs, gallops, or rubs No peripheral edema Abdominal: Soft Nontender, no guarding, rebound or rigidity, no tenderness to palpation of the right costovertebral angle Abdomen moving with respiration Normoactive bowel sounds No hepatomegaly, No splenomegaly No palpable mass No abdominal wall hernia noted Skin: Normal temperature, tone, texture, turgor No induration No subcutaneous nodules No rash, lesions No ulcers Extremities: No digital cyanosis No clubbing Pedal pulses intact and symmetrical Radial pulses intact and symmetrical No calf tenderness Psychiatric: Alert and oriented to person, place and time Appropriate affect fair judgement Neuro Muscles Strength 5/5 in all 4 extremities Sensation to light touch grossly present throughout Cranial nerves II-XII grossly intact No focal sensory deficits Lymphatics: no palpable cervical or supraclavicular , or inguinal lymph nodes Results CBC & Chem 7: 01/17/21 17:46 01/17/21 15:52 Labs: Abnormal Lab Results - Last 24 Hours (Table) 01/17/21 01/17/21 01/17/21 Range/Units 15:52 15:52 15:52 Hgb 6.8 L* (11.4-16.0) gm/dL Hct 26.2 L (34.0-46.0) % MCV 65.0 L (80.0-100.0) fL MCH 16.8 L (25.0-35.0) pg MCHC 25.9 L (31.0-37.0) g/dL RDW 17.7 H (11.5-15.5) % Neutrophils # 8.8 H (1.3-7.7) k/uL Sodium 136 L (137-145) mmol/L Carbon Dioxide 21 L (22-30) mmol/L Glucose 111 H (74-99) mg/dL Urine Protein Trace H (Negative) Urine Ketones 2+ H (Negative) Urine Blood Trace H (Negative) Ur Leukocyte Esterase Small H (Negative) Urine RBC 6 H (0-5) /hpf Urine WBC 7 H (0-5) /hpf Ur Squamous Epith Cells 6 H (0-4) /hpf Urine Mucus Few H (None) /hpf Crossmatch 01/17/21 01/17/21 Range/Units 17:32 17:46 Hgb 6.6 L* (11.4-16.0) gm/dL Hct 26.0 L (34.0-46.0) % MCV 65.1 L (80.0-100.0) fL MCH 16.4 L (25.0-35.0) pg MCHC 25.2 L (31.0-37.0) g/dL RDW 17.7 H (11.5-15.5) % Neutrophils # 8.5 H (1.3-7.7) k/uL Sodium (137-145) mmol/L Carbon Dioxide (22-30) mmol/L Glucose (74-99) mg/dL Urine Protein (Negative) Urine Ketones (Negative) Urine Blood (Negative) Ur Leukocyte Esterase (Negative) Urine RBC (0-5) /hpf Urine WBC (0-5) /hpf Ur Squamous Epith Cells (0-4) /hpf Urine Mucus (None) /hpf Crossmatch See Detail Assessment and Plan Assessment: Right obstructing renal stone with mild hydro nephrosis Severe microcytic anemia, denies any bleeding Plan Iron studies Blood transfusion Hematology consult Urology consult Stool occult blood test was negative Colonoscopy 2018 with patient claims to be normal Pain control Flomax IV fluid hydration with normal saline Symptomatic control of nausea CODE STATUS:full code DVT prophylaxis: mechanical Discussed with: Patient, ER Anticipated length of stay < than [address]: A total of 65 minutes was spent on the care of this complex patient more than 50% of the time was spent in counseling and care coordination.
[2021-01-17] MEDS: TAMSULOSIN 0.4 MG CAP.ER.24H PO SCH ×3 (22:19→22:23)
[2021-01-18 04:44] LABS: African American GFR (CKD) >90 (>60 ml/min/1.73 sqM); Anion Gap 8 mmol/L; Blood Urea Nitrogen 11 mg/dL (7-17); Calcium 8.9 mg/dL (8.4-10.2); Carbon Dioxide 23 mmol/L (22-30); Chloride 108 mmol/L (98-107); Glucose 106 mg/dL (74-99); Non-African American GFR(CKD) 81 (>60 ml/min/1.73 sqM); Potassium 4.2 mmol/L (3.5-5.1); Sodium 139 mmol/L (137-145)
[2021-01-18 04:50] LABS: Anisocytosis Moderate; Basophils # (A) 0.1 k/uL (0-0.2); Basophils % (A) 1 %; Eosinophils # (A) 0.1 k/uL (0-0.7); Eosinophils % (A) 1 %; HCT 29.7 % (34.0-46.0); Hypochromasia Marked; Lymphocytes # (A) 1.5 k/uL (1.0-4.8); Lymphocytes % (A) 18 %; MCH 19.2 pg (25.0-35.0); MCHC 27.9 g/dL (31.0-37.0); Microcytosis Marked; Monocytes # (A) 0.4 k/uL (0-1.0); Monocytes % (A) 5 %; Neutrophils # (A) 6.3 k/uL (1.3-7.7); Neutrophils % (A) 75 %; Platelet Count 217 k/uL (150-450); Poikilocytosis Marked; RBC 4.31 m/uL (3.80-5.40); RDW 20.3 % (11.5-15.5); WBC 8.5 k/uL (3.8-10.6)
[2021-01-18 04:53] LABS: HGB 8.3 gm/dL (11.4-16.0)
[2021-01-18] MEDS: LEVOTHYROXINE 125 MCG TAB PO SCH (05:45)
--- NOTE | 2021-01-18 08:16 | P.GSCN ---
History of Present Illness Consult date: 01/18/21 Reason for Consult: Right renal colic Requesting physician: Sreedhar Bourgeois History of present illness: The patient is a 70-year-old white female with no prior history of UTIs or urolithiasis. Early in the morning January 17, she developed acute onset of right flank pain associated with nausea. She denied fever and chills. She denied dysuria and hematuria. She is now asymptomatic. Review of Systems - Constitutional Denies chills, Denies fever - Gastrointestinal Reports nausea, Denies vomiting - Genitourinary Genitourinary: Reports flank pain, Reports kidney stones, Denies dysuria, Denies hematuria Past Medical History Past Medical History: Blood Disorder, Osteoarthritis (OA), Thyroid Disorder Additional Past Medical History / Comment(s): Recent anemia, SURGERY POSTPONED LAST MONTH, HAD 2 IRON INFUSIONS. "Multiple" Hernias per pt. HEART MURMUR; HAD CARDIAC W/U LAST MONTH. History of Any Multi-Drug Resistant Organisms: None Reported Past Surgical History: Orthopedic Surgery, Tonsillectomy Additional Past Surgical History / Comment(s): Arthroscopic RT knee, EGD, Colonoscopy Past Anesthesia/Blood Transfusion Reactions: Family History of Problems w/ Anesthesia, Postoperative Nausea & Vomiting (PONV) Additional Past Anesthesia/Blood Transfusion Reaction / Comm: Mother - PONV Past Psychological History: No Psychological Hx Reported Smoking Status: Never smoker Past Alcohol Use History: Rare Past Drug Use History: None Reported - Past Family History Mother Family Medical History: Cancer Medications and Allergies Home Medications Medication Instructions Recorded Confirmed Type Levothyroxine Sodium [Synthroid] 125 mcg PO DAILY 08/07/18 01/17/21 History Allergies Allergy/AdvReac Type Severity Reaction Status Date / Time ferrous sulfate AdvReac Diarrhea Verified 01/17/21 20:26 Surgical - Exam Vital Signs Temp Pulse Resp BP 98.0 F 84 20 148/69 01/17/21 14:41 01/17/21 14:41 01/17/21 14:41 01/17/21 14:41 - General well developed, well nourished, no distress - Neck no masses, trachea midline - Respiratory normal respiratory effort - Abdomen Abdomen: soft, non tender, no guarding, no rigid, no rebound - Psychiatric oriented to time, oriented to person, oriented to place, speech is normal, memory intact Results - Labs 01/18/21 03:35 01/18/21 03:35 Abnormal Lab Results - Last 24 Hours (Table) 01/17/21 01/17/21 01/17/21 Range/Units 15:52 15:52 15:52 Hgb 6.8 L* (11.4-16.0) gm/dL Hct 26.2 L (34.0-46.0) % MCV 65.0 L (80.0-100.0) fL MCH 16.8 L (25.0-35.0) pg MCHC 25.9 L (31.0-37.0) g/dL RDW 17.7 H (11.5-15.5) % Neutrophils # 8.8 H (1.3-7.7) k/uL Sodium 136 L (137-145) mmol/L Chloride (98-107) mmol/L Carbon Dioxide 21 L (22-30) mmol/L Glucose 111 H (74-99) mg/dL Urine Protein Trace H (Negative) Urine Ketones 2+ H (Negative) Urine Blood Trace H (Negative) Ur Leukocyte Esterase Small H (Negative) Urine RBC 6 H (0-5) /hpf Urine WBC 7 H (0-5) /hpf Ur Squamous Epith Cells 6 H (0-4) /hpf Urine Mucus Few H (None) /hpf Crossmatch 01/17/21 01/17/21 01/18/21 Range/Units 17:32 17:46 03:35 Hgb 6.6 L* 8.3 L D (11.4-16.0) gm/dL Hct 26.0 L 29.7 L (34.0-46.0) % MCV 65.1 L 69.0 L (80.0-100.0) fL MCH 16.4 L 19.2 L (25.0-35.0) pg MCHC 25.2 L 27.9 L (31.0-37.0) g/dL RDW 17.7 H 20.3 H (11.5-15.5) % Neutrophils # 8.5 H (1.3-7.7) k/uL Sodium (137-145) mmol/L Chloride (98-107) mmol/L Carbon Dioxide (22-30) mmol/L Glucose (74-99) mg/dL Urine Protein (Negative) Urine Ketones (Negative) Urine Blood (Negative) Ur Leukocyte Esterase (Negative) Urine RBC (0-5) /hpf Urine WBC (0-5) /hpf Ur Squamous Epith Cells (0-4) /hpf Urine Mucus (None) /hpf Crossmatch See Detail 01/18/21 Range/Units 03:35 Hgb (11.4-16.0) gm/dL Hct (34.0-46.0) % MCV (80.0-100.0) fL MCH (25.0-35.0) pg MCHC (31.0-37.0) g/dL RDW (11.5-15.5) % Neutrophils # (1.3-7.7) k/uL Sodium (137-145) mmol/L Chloride 108 H (98-107) mmol/L Carbon Dioxide (22-30) mmol/L Glucose 106 H (74-99) mg/dL Urine Protein (Negative) Urine Ketones (Negative) Urine Blood (Negative) Ur Leukocyte Esterase (Negative) Urine RBC (0-5) /hpf Urine WBC (0-5) /hpf Ur Squamous Epith Cells (0-4) /hpf Urine Mucus (None) /hpf Crossmatch Diabetes panel 01/17/21 01/18/21 Range/Units 15:52 03:35 Sodium 136 L 139 (137-145) mmol/L Potassium 4.6 4.2 (3.5-5.1) mmol/L Chloride 106 108 H (98-107) mmol/L Carbon Dioxide 21 L 23 (22-30) mmol/L BUN 14 11 (7-17) mg/dL Creatinine 0.89 0.76 (0.52-1.04) mg/dL Glucose 111 H 106 H (74-99) mg/dL Calcium 9.5 8.9 (8.4-10.2) mg/dL AST 25 (14-36) U/L ALT 11 (4-34) U/L Alkaline Phosphatase 60 (38-126) U/L Total Protein 6.5 (6.3-8.2) g/dL Albumin 4.2 (3.5-5.0) g/dL Calcium panel 01/17/21 01/18/21 Range/Units 15:52 03:35 Calcium 9.5 8.9 (8.4-10.2) mg/dL Albumin 4.2 (3.5-5.0) g/dL Pituitary panel 01/17/21 01/18/21 Range/Units 15:52 03:35 Sodium 136 L 139 (137-145) mmol/L Potassium 4.6 4.2 (3.5-5.1) mmol/L Chloride 106 108 H (98-107) mmol/L Carbon Dioxide 21 L 23 (22-30) mmol/L BUN 14 11 (7-17) mg/dL Creatinine 0.89 0.76 (0.52-1.04) mg/dL Glucose 111 H 106 H (74-99) mg/dL Calcium 9.5 8.9 (8.4-10.2) mg/dL Adrenal panel 01/17/21 01/18/21 Range/Units 15:52 03:35 Sodium 136 L 139 (137-145) mmol/L Potassium 4.6 4.2 (3.5-5.1) mmol/L Chloride 106 108 H (98-107) mmol/L Carbon Dioxide 21 L 23 (22-30) mmol/L BUN 14 11 (7-17) mg/dL Creatinine 0.89 0.76 (0.52-1.04) mg/dL Glucose 111 H 106 H (74-99) mg/dL Calcium 9.5 8.9 (8.4-10.2) mg/dL Total Bilirubin 0.6 (0.2-1.3) mg/dL AST 25 (14-36) U/L ALT 11 (4-34) U/L Alkaline Phosphatase 60 (38-126) U/L Total Protein 6.5 (6.3-8.2) g/dL Albumin 4.2 (3.5-5.0) g/dL - Imaging US - kidney/bladder: report reviewed, image reviewed Assessment and Plan (1) Hydronephrosis Current Visit: Yes Status: Acute Code(s): N13.30 - UNSPECIFIED HYDRONEPHROSIS SNOMED Code(s): 44142804 (2) Nephrolithiasis Current Visit: Yes Status: Acute Code(s): N20.0 - CALCULUS OF KIDNEY SNOMED Code(s): 45287918 Plan: In summary, the patient is a 70-year-old woman with no prior history of urolithiasis. Ultrasound shows evidence of right hydronephrosis, as well as an 8 mm right lower pole renal calculus. A calculus in this location would not be expected to cause hydronephrosis, so an etiology of her hydronephrosis has not been identified. She may have had a small ureteral calculus which she passed. A computed tomography scan will be obtained for further evaluation. I anticipate that she will be discharged home later today if she remains asymptom atic. Time with Patient: Greater than 30
[2021-01-18 09:46] LABS: % Iron Saturation 1.56 (12.00-45.00); Ferritin 1.3 ng/mL (10.0-291.0)
--- NOTE | 2021-01-18 10:20 | CT ---
EXAMINATION TYPE: CT abdomen pelvis wo con DATE OF EXAM: 01/18/2021 COMPARISON: 07/18/2018 HISTORY: Hydronephrosis CT DLP: 655.4 mGycm Automated exposure control for dose reduction was used. TECHNIQUE: Helical acquisition of images was performed from the lung bases through the pelvis. FINDINGS: LUNG BASES: Subsegmental consolidation of both lungs. LIVER/GB: Hypodensities in the liver are indeterminate by noncontrast technique but similar to the pr ior exam and statistically most likely related to cysts. PANCREAS: No significant abnormality is seen. SPLEEN: No significant abnormality is seen. ADRENALS: No significant abnormality is seen. KIDNEYS: There are 2 sub-5 mm left renal calculi with no hydronephrosis vague patchy increased attenu ation involving the cortex of the mid left kidney may represent cortical calcification or hemorrhagic cyst. Single 4 mm lower pole right renal calculus with no hydronephrosis. Suspect a 4 mm bladder yenni culus posteriorly. ADENOPATHY: None visualized. OSSEOUS STRUCTURES: Hypertrophic and degenerative changes spine. BOWEL: Nonspecific gas pattern with changes of diverticulosis OTHER: Small fat-containing periumbilical hernia. Lobulation of the uterus with nodular component inv olving the left adnexa. Ovarian lesion not excluded. Bilateral fat-containing inguinal hernia. IMPRESSION: 1. Nonobstructing bilateral nephrolithiasis 2. Bibasilar lower lobe infiltrate. 3. 4 mm bladder calculus. 4. Nonspecific gas pattern with changes of diverticulosis but no obstruction. 5. Large hiatal hernia. 6. Lobulated contour to the uterus and left adnexa could represent uterine fibroid. Ovarian lesion no t excluded recommend pelvic ultrasound.
--- NOTE | 2021-01-18 12:13 | P.PN ---
Subjective Progress Note Date: 01/18/21 Patient was seen by Dr. cheek this morning. She came in the hospital with right flank pain consistent with a ureteral calculus. The computed tomography scan shows the calculus now in the bladder. She has a 7 mm right lower pole stone and a 4 mm left mid stone both of these are nonobstructing and asym ptomatic. She can be discharged home from urologic standpoint. She should be seen in our office in a couple of weeks for follow-up discussion about treatment for her remaining stones. Objective - Vital Signs Vital signs: Vital Signs Temp 98.6 F 01/18/21 08:06 Pulse 73 01/18/21 08:06 Resp 18 01/18/21 08:06 BP 125/63 01/18/21 08:06 Pulse Ox 99 01/18/21 08:06 Intake & Output 01/17/21 01/18/21 01/18/21 18:59 06:59 18:59 Intake Total 620 Balance 620 Weight 81.647 kg Intake: Blood Product 620 Rc As-1 Unit 310 [id number] Rc As-1 Unit 310 [id number] - Labs CBC & Chem 7: 01/18/21 03:35 01/18/21 03:35 Labs: Abnormal Lab Results - Last 24 Hours (Table) 01/17/21 01/17/21 01/17/21 Range/Units 15:52 15:52 15:52 Hgb 6.8 L* (11.4-16.0) gm/dL Hct 26.2 L (34.0-46.0) % MCV 65.0 L (80.0-100.0) fL MCH 16.8 L (25.0-35.0) pg MCHC 25.9 L (31.0-37.0) g/dL RDW 17.7 H (11.5-15.5) % Neutrophils # 8.8 H (1.3-7.7) k/uL Sodium 136 L (137-145) mmol/L Chloride (98-107) mmol/L Carbon Dioxide 21 L (22-30) mmol/L Glucose 111 H (74-99) mg/dL Iron (50-170) ug/dL % Saturation (12.00-45.00) Ferritin (10.0-291.0) ng/mL Urine Protein Trace H (Negative) Urine Ketones 2+ H (Negative) Urine Blood Trace H (Negative) Ur Leukocyte Esterase Small H (Negative) Urine RBC 6 H (0-5) /hpf Urine WBC 7 H (0-5) /hpf Ur Squamous Epith Cells 6 H (0-4) /hpf Urine Mucus Few H (None) /hpf Crossmatch 01/17/21 01/17/21 01/17/21 Range/Units 15:52 17:32 17:46 Hgb 6.6 L* (11.4-16.0) gm/dL Hct 26.0 L (34.0-46.0) % MCV 65.1 L (80.0-100.0) fL MCH 16.4 L (25.0-35.0) pg MCHC 25.2 L (31.0-37.0) g/dL RDW 17.7 H (11.5-15.5) % Neutrophils # 8.5 H (1.3-7.7) k/uL Sodium (137-145) mmol/L Chloride (98-107) mmol/L Carbon Dioxide (22-30) mmol/L Glucose (74-99) mg/dL Iron 7 L (50-170) ug/dL % Saturation 1.56 L (12.00-45.00) Ferritin 1.3 L (10.0-291.0) ng/mL Urine Protein (Negative) Urine Ketones (Negative) Urine Blood (Negative) Ur Leukocyte Esterase (Negative) Urine RBC (0-5) /hpf Urine WBC (0-5) /hpf Ur Squamous Epith Cells (0-4) /hpf Urine Mucus (None) /hpf Crossmatch See Detail 01/18/21 01/18/21 Range/Units 03:35 03:35 Hgb 8.3 L D (11.4-16.0) gm/dL Hct 29.7 L (34.0-46.0) % MCV 69.0 L (80.0-100.0) fL MCH 19.2 L (25.0-35.0) pg MCHC 27.9 L (31.0-37.0) g/dL RDW 20.3 H (11.5-15.5) % Neutrophils # (1.3-7.7) k/uL Sodium (137-145) mmol/L Chloride 108 H (98-107) mmol/L Carbon Dioxide (22-30) mmol/L Glucose 106 H (74-99) mg/dL Iron (50-170) ug/dL % Saturation (12.00-45.00) Ferritin (10.0-291.0) ng/mL Urine Protein (Negative) Urine Ketones (Negative) Urine Blood (Negative) Ur Leukocyte Esterase (Negative) Urine RBC (0-5) /hpf Urine WBC (0-5) /hpf Ur Squamous Epith Cells (0-4) /hpf Urine Mucus (None) /hpf Crossmatch
--- NOTE | 2021-01-18 13:27 | P.PN ---
Subjective Progress Note Date: 01/18/21 Patient is doing fairly well today. She denies any abdominal pain. She denies seeing any blood in her stool or black stool. She said that she used to take iron supplements in the past but then it has been discontinued. Objective - Vital Signs Vital signs: Vital Signs Temp 98.0 F 01/18/21 12:22 Pulse 67 01/18/21 12:22 Resp 18 01/18/21 12:22 BP 133/71 01/18/21 12:22 Pulse Ox 98 01/18/21 12:22 Intake & Output 01/17/21 01/18/21 01/18/21 18:59 06:59 18:59 Intake Total 620 Balance 620 Weight 81.647 kg Intake: Blood Product 620 Rc As-1 Unit 310 [id number] Rc As-1 Unit 310 [id number] - Exam General: The patient is awake and alert, in no distress Eye: there is normal conjunctiva bilaterally. Neck: The neck is supple, there is no JVD. Cardiovascular: Normal S1-S2, no S3-S4, no murmurs. Respiratory: Lungs clear to auscultation bilaterally Gastrointestinal: Abdomen is soft, nontender Musculoskeletal: There is no pedal edema. Neurological:. Speech is normal. Skin: Skin is warm and dry - Labs CBC & Chem 7: 01/18/21 03:35 01/18/21 03:35 Labs: Abnormal Lab Results - Last 24 Hours (Table) 01/17/21 01/17/21 01/17/21 Range/Units 15:52 15:52 15:52 Hgb 6.8 L* (11.4-16.0) gm/dL Hct 26.2 L (34.0-46.0) % MCV 65.0 L (80.0-100.0) fL MCH 16.8 L (25.0-35.0) pg MCHC 25.9 L (31.0-37.0) g/dL RDW 17.7 H (11.5-15.5) % Neutrophils # 8.8 H (1.3-7.7) k/uL Sodium 136 L (137-145) mmol/L Chloride (98-107) mmol/L Carbon Dioxide 21 L (22-30) mmol/L Glucose 111 H (74-99) mg/dL Iron (50-170) ug/dL % Saturation (12.00-45.00) Ferritin (10.0-291.0) ng/mL Urine Protein Trace H (Negative) Urine Ketones 2+ H (Negative) Urine Blood Trace H (Negative) Ur Leukocyte Esterase Small H (Negative) Urine RBC 6 H (0-5) /hpf Urine WBC 7 H (0-5) /hpf Ur Squamous Epith Cells 6 H (0-4) /hpf Urine Mucus Few H (None) /hpf Crossmatch 01/17/21 01/17/21 01/17/21 Range/Units 15:52 17:32 17:46 Hgb 6.6 L* (11.4-16.0) gm/dL Hct 26.0 L (34.0-46.0) % MCV 65.1 L (80.0-100.0) fL MCH 16.4 L (25.0-35.0) pg MCHC 25.2 L (31.0-37.0) g/dL RDW 17.7 H (11.5-15.5) % Neutrophils # 8.5 H (1.3-7.7) k/uL Sodium (137-145) mmol/L Chloride (98-107) mmol/L Carbon Dioxide (22-30) mmol/L Glucose (74-99) mg/dL Iron 7 L (50-170) ug/dL % Saturation 1.56 L (12.00-45.00) Ferritin 1.3 L (10.0-291.0) ng/mL Urine Protein (Negative) Urine Ketones (Negative) Urine Blood (Negative) Ur Leukocyte Esterase (Negative) Urine RBC (0-5) /hpf Urine WBC (0-5) /hpf Ur Squamous Epith Cells (0-4) /hpf Urine Mucus (None) /hpf Crossmatch See Detail 01/18/21 01/18/21 Range/Units 03:35 03:35 Hgb 8.3 L D (11.4-16.0) gm/dL Hct 29.7 L (34.0-46.0) % MCV 69.0 L (80.0-100.0) fL MCH 19.2 L (25.0-35.0) pg MCHC 27.9 L (31.0-37.0) g/dL RDW 20.3 H (11.5-15.5) % Neutrophils # (1.3-7.7) k/uL Sodium (137-145) mmol/L Chloride 108 H (98-107) mmol/L Carbon Dioxide (22-30) mmol/L Glucose 106 H (74-99) mg/dL Iron (50-170) ug/dL % Saturation (12.00-45.00) Ferritin (10.0-291.0) ng/mL Urine Protein (Negative) Urine Ketones (Negative) Urine Blood (Negative) Ur Leukocyte Esterase (Negative) Urine RBC (0-5) /hpf Urine WBC (0-5) /hpf Ur Squamous Epith Cells (0-4) /hpf Urine Mucus (None) /hpf Crossmatch Assessment and Plan Assessment: This is a 70-year-old female with past medical history noted below who presented to the emergency room with right flank pain. Patient was evaluated in the ER and placed on observation for further management of her medical problems noted below. 1. Bilateral nonobstructing kidney stones, noted on CT abdomen. Patient was seen and evaluated by urology. No intervention recommended at this time. Plan to follow-up as an outpatient. 2. Iron deficiency anemia, with hemoglobin of 6.6 on presentation. Status post 2 unit PRBC transfusion. Patient has no evidence of ongoing GI bleed. Hemoc cult is negative. Reported normal colonoscopy last year. Hematology consulted for further evaluation. Start ferrous sulfate 3 times daily with meals. Repeat CBC in the morning. 3. Hypothyroidism on levothyroxin 4. DVT prophylaxis with SCDs Continue close observation. Repeat CBC in the morning. Anticipate discharge home tomorrow.
[2021-01-18] MEDS: FERROUS SULFATE 325 MG TAB PO SCH (19:11)
[2021-01-18] MEDS: TAMSULOSIN 0.4 MG CAP.ER.24H PO SCH (19:50)
[2021-01-19] MEDS: LEVOTHYROXINE 125 MCG TAB PO SCH (05:41)
[2021-01-19 07:16] LABS: Anisocytosis Moderate; Basophils # (A) 0.1 k/uL (0-0.2); Basophils % (A) 1 %; Eosinophils # (A) 0.1 k/uL (0-0.7); Eosinophils % (A) 2 %; HCT 28.3 % (34.0-46.0); HGB 8.4 gm/dL (11.4-16.0); Hypochromasia Marked; Lymphocytes # (A) 1.2 k/uL (1.0-4.8); Lymphocytes % (A) 20 %; MCH 19.9 pg (25.0-35.0); MCHC 29.6 g/dL (31.0-37.0); MCV 67.1 fL (80.0-100.0); Mean Platelet Volume 10.1; Microcytosis Marked; Monocytes # (A) 0.3 k/uL (0-1.0); Monocytes % (A) 6 %; Neutrophils # (A) 4.1 k/uL (1.3-7.7); Neutrophils % (A) 70 %; Platelet Count 231 k/uL (150-450); Poikilocytosis Marked; RBC 4.22 m/uL (3.80-5.40); RDW 20.8 % (11.5-15.5); WBC 5.8 k/uL (3.8-10.6)
[2021-01-19] MEDS: FERROUS SULFATE 325 MG TAB PO SCH (08:12)
--- NOTE | 2021-01-19 08:15 | P.DS ---
Providers Date of admission: 01/17/21 19:21 Expected date of discharge: 01/19/21 Attending physician: Sreedhar Bourgeois MD Consults: 01/17/21 20:19 Consult Physician Stat Consulting Provider: Tra Miller Consult Reason/Comments: Nephrolithiasis, 8 mm Do you want consulting provider notified?: Yes 01/18/21 13:22 Consult Physician Routine Consulting Provider: Logan Espinosa Consult Reason/Comments: anemia Do you want consulting provider notified?: Yes Primary care physician: Physician Nonstaff Hospital Course: This is a 70-year-old female with past medical history noted below who presented to the emergency room with right flank pain. Patient was evaluated in the ER and placed on observation for further management of her medical problems noted below. 1. Bilateral nonobstructing kidney stones, noted on CT abdomen. Patient was seen and evaluated by urology. No intervention recommended at this time. Plan to follow-up as an outpatient. Patient is asymptomatic 2. Iron deficiency anemia, with hemoglobin of 6.6 on presentation. Status post 2 unit PRBC transfusion. Hemoglobin stabilized around 8.4. Patient has no evidence of ongoing GI bleed. Hemoccult is negative. Reported normal colonoscopy last year. Hematology consulted for further evaluation. Start ferrous sulfate 3 times daily with meals. Repeat CBC in the next 3-5 days 3. Hypothyroidism on levothyroxin Patient will be discharged home in a stable condition. For further details about this hospitalization please refer to the electronic chart. Time spent on discharge > 30 minutes including counseling and coordination of care Patient Condition at Discharge: Stable Plan - Discharge Summary Discharge Rx Participant: No New Discharge Prescriptions: New Ferrous Sulfate [Iron (65 MG Elemental)] 325 mg PO TID-W/MEALS #90 tab Continue Levothyroxine Sodium [Synthroid] 125 mcg PO DAILY Discharge Medication List Levothyroxine Sodium [Synthroid] 125 mcg PO DAILY 08/07/18 [History] Ferrous Sulfate [Iron (65 MG Elemental)] 325 mg PO TID-W/MEALS #90 tab 01/19/21 [Rx] Follow up Appointment(s)/Referral(s): Tra Miller MD [STAFF PHYSICIAN] - 2 Weeks Nonstaff,Physician [Primary Care Provider] - 1-2 days Logan Espinosa MD [STAFF PHYSICIAN] - 1 Week Discharge Disposition: HOME SELF-CARE
[2021-01-19 08:35] VITALS: BP 149/76; PULSE 77; RESP 20; TEMP 97.8
--- NOTE | 2021-01-19 13:10 | P.CONS ---
History of Present Illness - Reason for Consult Consult date: 01/19/21 anemia Requesting physician: Denis Davidson - Chief Complaint anemia - History of Present Illness Ms. Garnica is a pleasant 70-year-old female patient who came into the ER 2 days ago with complaints of abdominal pain, it had started the night before, it was persistent, located more in the right upper quadrant. Had an abdominal ultrasound as well as CT AP reports non-obstructing bilateral nephrolithiasis, bibasilar lower lobe infiltrates, 4 mm bladder calculus, nonspecific gas pattern with changes of diverticulosis, no obstruction, large hiatal hernia, lobulated contour to the uterus and left adnexa may be a uterine fibroid, ovarian lesion not excluded recommend a pelvic ultrasound. patient states that she was being worked up prior to her hernia repair a few years ago that was when she was first noted to be anemic. She had EGD and colonoscopy with Dr. Leal, no unusual findings. She was placed on oral iron but had pre-severe diarrhea so she ended up having some iron infusions. She denies any antiplatelet therapy, anticoagulation, gastrointestinal surgeries, no gross bleeding to report. She did note some fatigue, denied sweats, unintentional weight loss, changes in breathing, acute changes in bowel or bladder habits. Review of Systems 10 point review of systems is negative except as stated in HPI Past Medical History Past Medical History: Blood Disorder, Osteoarthritis (OA), Thyroid Disorder Additional Past Medical History / Comment(s): anemia, SURGERY POSTPONED LAST MONTH, HAD 2 IRON INFUSIONS. "Multiple" Hernias per pt.2018. HEART MURMUR; HAD CARDIAC W/U 2018 History of Any Multi-Drug Resistant Organisms: None Reported Past Surgical History: Orthopedic Surgery, Tonsillectomy Additional Past Surgical History / Comment(s): Arthroscopic RT knee, EGD, Colonoscopy Past Anesthesia/Blood Transfusion Reactions: Family History of Problems w/ Anesthesia, Postoperative Nausea & Vomiting (PONV) Additional Past Anesthesia/Blood Transfusion Reaction / Comm: Mother - PONV Past Psychological History: No Psychological Hx Reported Smoking Status: Never smoker Past Alcohol Use History: Rare Additional Past Alcohol Use History / Comment(s): quit smoking @age 33, smoked 1/2ppd for 12 yrs. Past Drug Use History: None Reported - Past Family History Mother Family Medical History: Cancer Medications and Allergies Home Medications Medication Instructions Recorded Confirmed Type Levothyroxine Sodium [Synthroid] 125 mcg PO DAILY 08/07/18 01/17/21 History Ferrous Sulfate [Iron (65 MG 325 mg PO TID-W/MEALS #90 tab 01/19/21 Rx Elemental)] Allergies Allergy/AdvReac Type Severity Reaction Status Date / Time ferrous sulfate AdvReac Diarrhea Verified 01/17/21 20:26 Physical Exam Vitals: Vital Signs Temp Pulse Resp BP Pulse Ox 01/19/21 08:10 97.8 F 77 20 149/76 98 01/19/21 01:45 97.7 F 66 15 119/67 97 01/18/21 22:01 16 01/18/21 19:47 97.9 F 68 16 137/71 98 01/18/21 14:38 97.9 F 85 20 151/76 100 Intake and Output 01/18/21 01/19/21 01/19/21 22:59 06:59 14:59 Other: Voiding Method Toilet # Voids 1 1 1 Weight 78.1 kg - Constitutional General appearance: average body habitus, cooperative, no acute distress - EENT Eyes: anicteric sclerae, EOMI ENT: hearing grossly normal, normal oropharynx - Neck Neck: no lymphadenopathy - Respiratory Respiratory: bilateral: CTA - Cardiovascular Rhythm: regular Heart sounds: normal: S1, S2 leg Peripheral Edema: bilateral: None - Gastrointestinal General gastrointestinal: no absent bowel sounds, no decreased bowel sounds, no distended, no hepatomegaly, no hyperactive bowel sounds, normal bowel sounds, no organomegaly, no rigid, no scaphoid, soft, no splenomegaly, no tenderness, no umbilical hernia, no ventral hernia - Integumentary Integumentary: normal - Neurologic Neurologic: CNII-XII intact - Musculoskeletal Musculoskeletal: strength equal bilaterally - Psychiatric Psychiatric: A&O x's 3, appropriate affect, intact judgment & insight Results CBC & Chem 7: 01/19/21 06:29 01/18/21 03:35 Labs: Abnormal Lab Results - Last 24 Hours (Table) 01/19/21 Range/Units 06:29 Hgb 8.4 L (11.4-16.0) gm/dL Hct 28.3 L (34.0-46.0) % MCV 67.1 L (80.0-100.0) fL MCH 19.9 L (25.0-35.0) pg MCHC 29.6 L (31.0-37.0) g/dL RDW 20.8 H (11.5-15.5) % Abdominal x-ray: report reviewed CT scan - abdomen: report reviewed CT scan - pelvis: report reviewed US - abdomen: report reviewed Assessment and Plan (1) Microcytic hypochromic anemia Narrative/Plan: Hemoglobin is stable after 2 units of packed red blood cells. Her iron studies show a ferritin of 1.3 a saturation of 1.56. Recommendation is for GI consult. Patient has seen Dr. Leal in the past and had EGD/colonoscopy with her so we will refer back. Also, based on the CT results we will have patient follow- up with her [facility]. If she does not have one we will make referral for that as well. Iron infusions will be scheduled in the office. She will follow-up with one of the [employer] or Dr. Espinosa in the next 1-2 weeks. All of this was discussed with the patient, she lives locally, she is agreeable to the same. Patient is okay for discharge from a hematology standpoint. Status: Acute Priority: Medium Code(s): D50.9 - IRON DEFICIENCY ANEMIA, UNSPECIFIED SNOMED Code(s): 31478351 Plan: attests: I preformed H&P and developed impression and plan of care for patient. Discussed with dictator. I agree with dictated note, documented as a scribe
== END 2021-01-19 10:25 | disposition home or self-care (01) ==
LOC: EC 13:53 → 3SCARD 19:21 → 6PED 01-18 14:00
PROVIDERS: ADMIT Internal Medicine; ATTEND Internal Medicine
DX: N13.2 Hydronephrosis with renal and ureteral calculous obstruction (principal); D50.9 Iron deficiency anemia, unspecified; E03.9 Hypothyroidism, unspecified; M19.90 Unspecified osteoarthritis, unspecified site; Z88.8 Allergy status to other drugs, medicaments and biological substances; Z79.890 Hormone replacement therapy; Z79.1 Long term (current) use of non-steroidal anti-inflammatories (NSAID); Z87.891 Personal history of nicotine dependence; Z84.89 Family history of other specified conditions; Z80.9 Family history of malignant neoplasm, unspecified; Z20.822 Contact with and (suspected) exposure to COVID-19
CPT/HCPCS: 36430; 96361 ×3; 96374; 96375; 99285; 36415; 86900; 86901; 80053; 80048; 82728; 82150; 83540; 83550; 83690; 85025 ×3; 86850; 86920; 82272; 81001; 87635; 74018; 76700; 74176; G0378 ×4; P9016; J2270; J2405

== ENCOUNTER 2021-03-19 11:25 | Day surgery (SDC) | payer BC, MEDICARE ==
[2021-03-18 10:27] VITALS: BMI 27.9
[~2021-03-19 11:25] MED LIST changes: -BUPIVACAIN-EPI 0.5%-1:200,000 30 ML VIAL SQ ONE; -DEXAMETHASONE SOD PHOSPHATE 10 MG/ML 1 ML VIAL IV ONE; -GLYCOPYRROLATE 0.2 MG/ML 2 ML VIAL ONE; -HEPARIN SODIUM,PORCINE 5,000 UNIT/ML 1 ML VIAL SQ ONE; -HYDROmorphone 0.5 MG/0.5 ML SYRINGE IVP PRN; -LACTATED RINGERS 1,000 ML IV ONE; +LACTATED RINGERS 1,000 ML IV SCH; -LIDOCAINE 1% 20 ML VIAL (10MG/ML) FOR IV START INTRADERMA ONE; -LIDOCAINE 1% INJ 10MG/ML (20 ML MDV) ONE; -MIDAZOLAM (PF) 2 MG/2 ML VIAL IV PRN; -MIDAZOLAM 2 MG/2 ML VIAL IV ONE; -NEOSTIGMINE 1 MG/ML 10 ML VIAL ONE; -ONDANSETRON 4 MG/2 ML VIAL IVP ONE; -PROPOFOL 10 MG/ML 20 ML VIAL IV ONE; -ROCURONIUM BROMIDE 10 MG/ML 10 ML VIAL IV ONE; -ROPIVACAINE 5 MG/ML 30 ML VIAL ONE; -SUCCINYLCHOLINE CHLORIDE 100 MG/5 ML SYR IV ONE; -ceFAZolin IN SWFI 2 GM/20 ML SYRINGE IVP ONE; -fentaNYL (PF) 50 MCG/ML 2 ML AMP IV ONE; -fentaNYL (PF) 50 MCG/ML 2 ML AMP ONE
[2021-03-19 11:50] VITALS: TEMP 97.9
[2021-03-19] MEDS ORDERED: LIDOCAINE 1% (10MG/ML) FOR IV START INTRADERMA ONE (11:56)
[2021-03-19] MEDS ORDERED: MIDAZOLAM 2 MG/2 ML VIAL ONE (12:14)
[2021-03-19] MEDS ORDERED: PROPOFOL 10 MG/ML 20 ML VIAL IV ONE (12:14)
--- NOTE | 2021-03-19 12:34 | P.PCN ---
Date of Procedure: 03/19/21 Procedure(s) Performed: Brief history: Patient is a pleasant 68-year-old white female scheduled for an elective upper endoscopy as well as colonoscopy as a part of evaluation of I deficiency anemia. Patient states that recently was noted to have a hemoglobin of 5 g/dL requiring 2 units of PRBC transfusion. Procedure performed: Esophagogastroduodenoscopy with biopsy Colonoscopy Preoperative diagnosis: Severe iron deficiency anemia Anesthesia: MAC Procedure: After informed consent was obtained from the patient was brought into the endoscopy unit and IV sedation was administered by anesthesia under continuous monitoring. Initially upper endoscopy was done. The Olympus GF 160 video endoscope was inserted inserted into the mouth and esophagus intubated without any difficulty and was gradually advanced into the stomach and duodenum and carefully examined. The bulb and second part of the duodenum appeared normal. Biopsies were done from the duodenum to rule out celiac disease. The scope was then withdrawn into the stomach adequately insufflated with air and upon careful examination the antrum and mild diffuse gastritis and biopsies were done from this area. The moderate size hiatal hernia noted. Mucosa of the body, cardia and fundus appeared normal. there were multiple Niles erosions noted at the diaphragmatic hiatus with no active bleeding. The scope was then withdrawn into the esophagus. The GE junction was located at 33 cm to the incisors. It appeared regular with no erythema erosions or ulcerations. Rest of the esophagus appeared normal. Patient tolerated the procedure well. At this time the patient continued to remain sedation. Initial digital rectal examination was normal. Olympus CF 160 video colonoscope was then inserted into the rectum and gradually advanced to the cecum without any difficulty. Careful examination was performed as the scope was gradually being withdrawn. The prep was excellent. The cecum, ascending colon, transverse colon, descending colon, sigmoid colon and rectum appeared normal. scattered sigmoid diverticulosis seen. Retroflexion was performed in the rectum and no lesions were noted. Patient tolerated the procedure well. Impression: 1. Upper endoscopy revealed moderate size hiatal hernia with multiple Niles erosions and gastritis 2. Colonoscopy was within normal limits with no evidence of colitis or colorectal neoplasia. Scattered sigmoid diverticulosis Recommendations: Findings of this examination were discussed with the patient as well as her family. She was advised to follow with the biopsy results. It is likely that iron deficiency anemia is related to moderate size hiatal hernia with Niles erosions. She was advised to start on Prilosec 20 mg daily and continue with iron supplements and monitor CBC periodically.
[2021-03-19 12:41] VITALS: RESP 17
[2021-03-19 12:58] VITALS: BP 119/62; PULSE 75
== END 2021-03-19 13:12 | disposition home or self-care (01) ==
LOC: ORWHC2ENDO 11:25
PROVIDERS: ATTEND Internal Medicine Gastroenterology
DX: D50.9 Iron deficiency anemia, unspecified (principal); K57.90 Diverticulosis of intestine, part unspecified, without perforation or abscess without bleeding; Z79.899 Other long term (current) drug therapy; E07.9 Disorder of thyroid, unspecified
CPT/HCPCS: 88305; 45378; 43239; J2250; J2704

== ENCOUNTER 2025-02-03 14:27 | Emergency (ER) | payer MEDICARE ==
[2025-02-03 14:33] VITALS: RESP 18
--- NOTE | 2025-02-03 15:25 | ED ---
Back Pain HPI - General Chief Complaint: Back Pain/Injury Stated Complaint: R Side Pain Time Seen by Provider: 02/03/25 14:39 Source: patient, RN notes reviewed Limitations: no limitations - History of Present Illness Initial Comments: This is a 74-year-old female with history including osteoarthritis presenting for right lower back pain x 2 weeks. Patient states she was lifting a heavy crate when she began having right lower back pain with pain radiating to right foot with associated edema. Patient states pain worsens with movement. Endorses use of Motrin 800 and Tylenol with minimal relief. Denies fever, chills, saddle paresthesia, urinary incontinence/retention, urinary symptoms. MD Complaint: back pain Onset/Timin -: week(s) Similar Symptoms Previously: No Place: home Radiation: right leg Severity scale (1-10): 7 Consistency: constant Improves With: immobilization Worsens With: movement, walking Context: while lifting Treatments Prior to Arrival: NSAIDS, acetaminophen - Related Data Home Medications Medication Instructions Recorded Confirmed Levothyroxine Sodium [Synthroid] 150 mcg PO DAILY 08/07/18 11/28/22 Previous Rx's Medication Instructions Recorded Aspirin [Adult Low Dose Aspirin EC] 81 mg PO BID #60 tab 11/30/22 HYDROcodone/APAP 7.5-325MG [[place] 1 - 2 each PO Q6HR PRN #36 tab 11/30/22 7.5] Sennosides-Docusate Sodium 2 each PO HS tab 11/30/22 [Senokot-S] Allergies Allergy/AdvReac Type Severity Reaction Status Date / Time No Known Allergies Allergy Verified 02/03/25 14:32 Review of Systems ROS Statement: Those systems with pertinent positive or pertinent negative responses have been documented in the HPI. ROS Other: All systems not noted in ROS Statement are negative. Past Medical History Past Medical History: Blood Disorder, Osteoarthritis (OA), Thyroid Disorder Additional Past Medical History / Comment(s): anemia, SURGERY POSTPONED LAST MONTH, HAD 2 IRON INFUSIONS. "Multiple" Hernias per pt.2018. HEART MURMUR; HAD CARDIAC W/U 2018 History of Any Multi-Drug Resistant Organisms: None Reported Past Surgical History: Orthopedic Surgery, Tonsillectomy Additional Past Surgical History / Comment(s): Arthroscopic RT knee, EGD, Colonoscopy Past Anesthesia/Blood Transfusion Reactions: Family History of Problems w/ Anesthesia, Postoperative Nausea & Vomiting (PONV) Additional Past Anesthesia/Blood Transfusion Reaction / Comment(s): Mother - PONV Past Psychological History: No Psychological Hx Reported Smoking Status: Never smoker Past Alcohol Use History: Rare Past Drug Use History: None Reported - Past Family History Mother Family Medical History: Cancer General Exam Limitations: no limitations General appearance: alert, in no apparent distress Head exam: Present: atraumatic, normocephalic, normal inspection Eye exam: Present: normal appearance, PERRL, EOMI. Absent: scleral icterus, conjunctival injection, periorbital swelling ENT exam: Present: normal exam, mucous membranes moist Neck exam: Present: normal inspection. Absent: tenderness, meningismus, lymphadenopathy Respiratory exam: Present: normal lung sounds bilaterally. Absent: respiratory distress, wheezes, rales, rhonchi, stridor Cardiovascular Exam: Present: regular rate, normal rhythm, normal heart sounds. Absent: systolic murmur, diastolic murmur, rubs, gallop, clicks GI/Abdominal exam: Present: soft, normal bowel sounds. Absent: distended, tenderness, guarding, rebound, rigid Extremities exam: Present: normal inspection, full ROM, normal capillary refill. Absent: tenderness, pedal edema, joint swelling, calf tenderness Back exam: Present: tenderness, muscle spasm, paraspinal tenderness (Positive right paralumbar muscle spasm and point tenderness). Absent: vertebral tenderness Neurological exam: Present: alert, oriented X3, CN II-XII intact Psychiatric exam: Present: normal affect, normal mood Skin exam: Present: warm, dry, intact, normal color. Absent: rash Course Vital Signs 02/03/25 02/03/25 14:30 16:12 Temperature 97.9 F 99.1 F Pulse Rate 79 60 Respiratory 18 18 Rate Blood Pressure 167/104 167/91 O2 Sat by Pulse 97 98 Oximetry Medical Decision Making - Medical Decision Making Was pt. sent in by a medical professional or institution (, PA, PLANING MACHINE OPERATOR, urgent care, hospital, or usp...) When possible be specific @ -No Did you speak to anyone other than the patient for history (EMS, parent, family, police, friend...)? What history was obtained from this source @ -No Did you review nursing and triage notes (agree or disagree)? Why? @ -I reviewed and agree with nursing and triage notes Were old charts reviewed (outside hosp., previous admission, EMS record, old EKG, old radiological studies, urgent care reports/EKG's, usp records)? Report findings @ -No old charts were reviewed Differential Diagnosis (chest pain, altered mental status, abdominal pain women, abdominal pain men, vaginal bleeding, weakness, fever, dyspnea, syncope, headache, dizziness, GI bleed, back pain, seizure, CVA, palpatations, mental health, musculoskeletal)? @ -Differential Musculoskeletal Muscular strain, contusion, ligament sprain, fracture, arthritis, septic arthritis, bursitis, cellulitis, muscle spasm, nerve compression, DVT, arterial occlusion, herpes zoster, electrolyte abnormality, tumor.... This is not meant to be in all inclusive list EKG interpreted by me (3pts min.). @ -Not done X-rays interpreted by me (1pt min.). @ -None done CT interpreted by me (1pt min.). @ -None done U/S interpreted by me (1pt. min.). @ -None done What testing was considered but not performed or refused? (CT, X-rays, U/S, labs)? Why? @ -None What meds were considered but not given or refused? Why? @ -Patient declined IM Toradol, Solu-Medrol, Norflex, accepting only lidocaine patch Did you discuss the management of the patient with other professionals (professionals i.e. , PA, PLANING MACHINE OPERATOR, lab, RT, psych nurse, health care social worker, wall worker, teacher, collections officer, outpatient case manager)? Give summary @ -No Was smoking cessation discussed for >3mins.? @ -No Was critical care preformed (if so, how long)? @ -No Were there social determinants of health that impacted care today? How? (Homelessness, low income, unemployed, alcoholism, drug addiction, transportation, low edu. Level, literacy, decrease access to med. care, prison, rehab)? @ -No Was there de-escalation of care discussed even if they declined (Discuss DNR or withdrawal of care, Hospice)? DNR status @ -No What co-morbidities impacted this encounter? (DM, HTN, Smoking, COPD, CAD, Cancer, CVA, ARF, Chemo, Hep., AIDS, mental health diagnosis, sleep apnea, morbid obesity)? @ -None Was patient admitted / discharged? Hospital course, mention meds given and route, prescriptions, significant lab abnormalities, going to OR and other pertinent info. @ -Patient provided lidocaine patch, noting relief. Advised patient warm compress to affected area 4 times daily for up to 10 minutes. Also advised gentle massage and stretching of affected area. Follow-up with PCP for any ongoing or worsening symptoms. Discussed patient with Dr. Ball. Undiagnosed new problem with uncertain prognosis? @ -No Drug Therapy requiring intensive monitoring for toxicity (Heparin, Nitro, Insulin, Cardizem)? @ -No Were any procedures done? @ -No Diagnosis/symptom? @ -Sciatica Acute, or Chronic, or Acute on Chronic? @ -Acute Uncomplicated (without systemic symptoms) or Complicated (systemic symptoms)? @ -Uncomplicated Side effects of treatment? @ -No Exacerbation, Progression, or Severe Exacerbation? @ -No Poses a threat to life or bodily function? How? (Chest pain, [place], [place], pneumonia, PE, COPD, DKA, ARF, appy, cholecystitis, CVA, Diverticulitis, Homicidal, Suicidal, threat to staff... and all critical care pts) @ -No Disposition Clinical Impression: Sciatica Disposition: HOME SELF-CARE Condition: Good Instructions (If sedation given, give patient instructions): Sciatica (ED) Additional Instructions: Heating pad to affected area for 10 minutes up to 4 times daily. Gentle massage and stretching of affected area recommended. Follow-up with orthospine for further evaluation and treatment for sciatic pain. Is patient prescribed a controlled substance at d/c from ED?: No Referrals: Mita Machado DO [Primary Care Provider] - 1-2 days [facility] [Provider Group] - 1-2 days [facility] [Provider Group] - 1-2 days Time of Disposition: 15:25
[2025-02-03] MEDS: LIDOCAINE 4% PATCH TOPICAL ONE (15:28)
[2025-02-03 16:13] VITALS: BP 167/91; PULSE 60; TEMP 99.1
== END 2025-02-03 16:13 | disposition home or self-care (01) ==
LOC: EC 14:27
DX: M54.31 Sciatica, right side (principal); X50.0XXA Overexertion from strenuous movement or load, initial encounter; Y92.009 Unspecified place in unspecified non-institutional (private) residence as the place of occurrence of the external cause
CPT/HCPCS: 99283